=== PATIENT | female | born 1995 | race Caucasian/White ===

== ENCOUNTER 2016-11-22 15:29 | Emergency (ER) | payer OTHER ==
--- NOTE | 2016-11-22 15:54 | ER Document Report ---
ED Medical Screen (RME) - General Chief Complaint: Headache Stated Complaint: HEAD PAIN Time seen by provider: 15:50 Mode of Arrival: Ambulatory Information source: Patient Notes: 21-year-old female is complaining of typical migraine headache lasting longer than usual. It started a week and a half ago and is combined with hair loss, fatigue, malaise. no chest pain or abdominal pain. TRAVEL OUTSIDE OF THE [place] IN LAST 30 DAYS: No - Related Data Allergies/Adverse Reactions: No Known Allergies Allergy (Verified 11/22/16 15:48) Past Medical History Renal/ Medical History: Reports: Hx Ovarian Cysts Past Surgical History: Reports: Hx Myringotomy - Immunizations Immunizations up to date: Yes Hx Diphtheria, Pertussis, Tetanus Vaccination: Yes Physical Exam - Vital signs Vitals: Temp Pulse Resp BP Pulse Ox 97.5 F 79 16 103/61 100 11/22/16 15:49 11/22/16 15:49 11/22/16 15:49 11/22/16 15:49 11/22/16 15:49 Course - Vital Signs Vital signs: Temp Pulse Resp BP Pulse Ox 97.5 F 79 16 103/61 100 11/22/16 15:49 11/22/16 15:49 11/22/16 15:49 11/22/16 15:49 11/22/16 15:49
[2016-11-22 16:35] LABS: ABSOLUTE EOSINOPHILS # (AUTO) 0.1 10^3/uL (0.0-0.6); ABSOLUTE LYMPHOCYTES (AUTO) 1.7 10^3/uL (0.5-4.7); ABSOLUTE MONOCYTES (AUTO) 0.5 10^3/uL (0.1-1.4); ABSOLUTE NEUT (AUTO) 2.5 10^3/uL (1.7-8.2); BASOPHILS % (AUTO) 0.9 % (0-2); EOSINOPHILS % (AUTO) 2.4 % (0-6); HEMATOCRIT 40.4 % (36.0-47.0); HEMOGLOBIN 12.5 g/dL (12.0-15.5); HGB HCT DIFFERENCE -2.9; LYMPHOCYTES % (AUTO) 35.7 % (13-45); MEAN CORPUSCULAR HEMOGLOBIN 23.2 pg (27.0-33.4); MEAN CORPUSCULAR HGB CONC 30.9 g/dL (32.0-36.0); MEAN CORPUSCULAR VOLUME 75 fl (80-97); MONOCYTES % (AUTO) 10.3 % (3-13); RED BLOOD COUNT 5.38 10^6/uL (3.72-5.28); RED CELL DISTRIBUTION WIDTH 18.1 % (11.5-14.0); SEGMENTED NEUTROPHILS % (AUTO) 50.7 % (42-78); WHITE BLOOD COUNT 4.9 10^3/uL (4.0-10.5)
[2016-11-22 16:46] LABS: APPEARANCE,URINE SLIGHTLY-CLOUDY; BILIRUBIN,URINE NEGATIVE (NEGATIVE); GLUCOSE, URINE NEGATIVE (NEGATIVE); KETONES,URINE NEGATIVE (NEGATIVE); LEUKOCYTE ESTERASE,URINE TRACE (NEGATIVE); NITRITE,URINE NEGATIVE (NEGATIVE); PROTEIN,URINE NEGATIVE (NEGATIVE); URINE SPECIFIC GRAVITY 1.024; UROBILINOGEN,URINE NEGATIVE mg/dL (<2.0)
[2016-11-22 16:56] LABS: ALANINE AMINOTRANSFERASE 20 U/L (9-52); ALBUMIN 4.3 g/dL (3.5-5.0); ALKALINE PHOSPHATASE 89 U/L (38-126); ANION GAP 12 (5-19); ASPARTATE AMINO TRANSFERASE 17 U/L (14-36); BILIRUBIN,TOTAL 0.4 mg/dL (0.2-1.3); BLOOD UREA NITROGEN 14 mg/dL (7-20); CALCIUM 9.7 mg/dL (8.4-10.2); CARBON DIOXIDE 28 mmol/L (22-30); CHLORIDE 102 mmol/L (98-107); GLUCOSE 88 mg/dL (75-110); POTASSIUM 4.6 mmol/L (3.6-5.0); SODIUM 141.5 mmol/L (137-145); TOTAL PROTEIN 7.7 g/dL (6.3-8.2)
[2016-11-22] MEDS ORDERED: PROCHLORPERAZINE MALEATE 10 MG TABLET PO ONE (17:31)
[2016-11-22] MEDS ORDERED: ONDANSETRON 4 MG TAB.RAPDIS PO ONE (17:31)
[2016-11-22 18:12] LABS: URINE BARBITURATES SCREEN NEGATIVE; URINE METHADONE SCREEN NEGATIVE; URINE PHENCYCLIDINE SCREEN NEGATIVE
--- NOTE | 2016-11-22 19:03 | ER Document Report ---
ED General - General Chief Complaint: Headache Stated Complaint: HEAD PAIN Mode of Arrival: Ambulatory TRAVEL OUTSIDE OF THE [place] IN LAST 30 DAYS: No - HPI Patient complains to provider of: fatigue headache Notes: Patient with a history of migraine headaches. Patient states headache today similar to headaches in past states that ongoing for one half weeks. Patient is also complaining of generalized fatigue and weakness states that she's also having some hair loss. Patient is post proximal to 6 months. Patient is a . Otherwise denies any fever chills nausea vomiting diarrhea. Denies trauma. - Related Data Allergies/Adverse Reactions: No Known Allergies Allergy (Verified 11/22/16 15:48) Past Medical History - General Information source: Patient - Social History Smoking Status: Never Smoker Chew tobacco use (# tins/day): No Frequency of alcohol use: None Drug Abuse: None Family History: Reviewed & Not Pertinent Patient has suicidal ideation: No Patient has homicidal ideation: No Renal/ Medical History: Reports: Hx Ovarian Cysts. Denies: Hx Peritoneal Dialysis Psychiatric Medical History: Reports: Hx Depression Past Surgical History: Reports: Hx Myringotomy - Immunizations Immunizations up to date: Yes Hx Diphtheria, Pertussis, Tetanus Vaccination: Yes Review of Systems - Review of Systems Constitutional: Other - Generalized fatigue EENT: No symptoms reported Cardiovascular: No symptoms reported Respiratory: No symptoms reported Gastrointestinal: No symptoms reported Genitourinary: No symptoms reported Female Genitourinary: No symptoms reported Musculoskeletal: No symptoms reported Skin: No symptoms reported Hematologic/Lymphatic: No symptoms reported Neurological/Psychological: Headaches -: Yes All other systems reviewed and negative Physical Exam - Vital signs Vitals: Temp Pulse Resp BP Pulse Ox 97.5 F 79 16 103/61 100 11/22/16 15:45 11/22/16 15:45 11/22/16 15:45 11/22/16 15:45 11/22/16 15:45 Interpretation: Normal - General General appearance: Appears well, Alert - HEENT Head: Normocephalic, Atraumatic Eyes: Normal Pupils: PERRL - Respiratory Respiratory status: No respiratory distress Chest status: Nontender Breath sounds: Normal Chest palpation: Normal - Cardiovascular Rhythm: Regular Heart sounds: Normal auscultation Murmur: No - Abdominal Inspection: Normal Distension: No distension Bowel sounds: Normal Tenderness: Nontender Organomegaly: No organomegaly - Back Back: Normal, Nontender - Extremities General upper extremity: Normal inspection, Nontender, Normal color, Normal ROM , Normal temperature General lower extremity: Normal inspection, Nontender, Normal color, Normal ROM , Normal temperature, Normal weight bearing. No: Addison's sign - Neurological Neuro grossly intact: Yes Cognition: Normal Orientation: AAOx4 Kelvin Coma Scale Eye Opening: Spontaneous [place] Coma Scale Verbal: Oriented Kelvin Coma Scale Motor: Obeys Commands Kelvin Coma Scale Total: 15 Speech: Normal Motor strength normal: LUE, RUE, LLE, RLE Sensory: Normal - Psychological Associated symptoms: Normal affect, Normal mood - Skin Skin Temperature: Warm Skin Moisture: Dry Skin Color: Normal Course - Re-evaluation Re-evalutation: 11/22/16 23:04 Patient's lab work shows no critical etiology. More likely patient could be fatigue from her recent white changes. Headache resolved with Compazine. Patient encouraged follow-up her primary care physician. : The patient presents with headache without signs of FACULTY SUPPORT COORDINATOR bleed, stroke, infection, or other serious etiology. The patient is neurologically intact. Given the extremely low risk of these diagnoses further testing and evaluation for these possibilities does not appear to be indicated at this time. The patient has been instructed to return if the symptoms worsen or change in any way.. - Vital Signs Vital signs: Temp Pulse Resp BP Pulse Ox 98.0 F 81 18 110/67 100 11/22/16 20:26 11/22/16 20:26 11/22/16 20:26 11/22/16 20:26 11/22/16 20:26 - Laboratory Result Diagrams: 11/22/16 15:20 11/22/16 15:20 Laboratory results interpreted by me: 11/22/16 11/22/16 15:20 15:20 RBC 5.38 H MCV 75 L MCH 23.2 L MCHC 30.9 L RDW 18.1 H Ur Leukocyte Esterase TRACE H Discharge - Discharge Clinical Impression: Headache Qualifiers: Headache type: unspecified Headache chronicity pattern: unspecified pattern Intractability: not intractable Qualified Code(s): R51 - Headache Fatigue Qualifiers: Fatigue type: unspecified Qualified Code(s): R53.83 - Other fatigue Condition: Stable Disposition: HOME, SELF-CARE Instructions: Headache ([facility]), Fatigue ([facility]) Additional Instructions: Your labwork today including your electrolytes and thyroid studies showed no signs of abnormality. No signs of infection. He may take the Compazine and Zofran provided for your headache. Return to the ER symptoms worsen follow-up with your primary care physician. Prescriptions: Ondansetron [Zofran Odt 4 mg Tablet] 1 - 2 tab PO Q6 #15 tab.rapdis Prochlorperazine Maleate [Compazine] 5 mg PO Q6 #15 tablet Forms: Return to Work
[2016-11-22 20:32] VITALS: BP 110/67
== END 2016-11-22 20:26 | disposition home or self-care (01) ==
LOC: ER 15:29
DX: R51 Headache (principal); R53.83 Other fatigue
CPT/HCPCS: 99284; 36415; 84443; 84703; 85025; 86308; 80053; 81001; 80307; S0119; S0183

== ENCOUNTER 2018-03-03 07:22 | Outpatient (CLI) | payer OTHER ==
--- NOTE | 2018-03-03 08:16 | L&D Progress Notes ---
PROGRESS NOTES Datetime Report Generated by CPN: 03/03/2018 08:16 PROGRESS NOTE Impression: Reassuring Heart Rate Comment: Here for labor check, having uc's per pt, has a 18 month old and did not realize she should be having this many uc's. Hsb getting out of in 18 days and moving to [place]. Has appt at [facility] at 1 today. Will get reactive strip and discharge to keep appt at [facility] SIGNATURE SIGNATURE: [id number] Assignment: Camilo Russo MD Signature: with User ID: [email or web address] : with User ID: [email or web address]
[2018-03-03 08:36] LABS: AMORPHOUS SEDIMENT,URINE TRACE /HPF; APPEARANCE,URINE CLOUDY; BILIRUBIN,URINE NEGATIVE (NEGATIVE); COLOR,URINE YELLOW; GLUCOSE, URINE NEGATIVE (NEGATIVE); KETONES,URINE NEGATIVE (NEGATIVE); LEUKOCYTE ESTERASE,URINE SMALL (NEGATIVE); NITRITE,URINE NEGATIVE (NEGATIVE); PROTEIN,URINE NEGATIVE (NEGATIVE); UROBILINOGEN,URINE NEGATIVE mg/dL (<2.0)
[2018-03-03 08:49] LABS: URINE AMPHETAMINES SCREEN NEGATIVE; URINE BARBITURATES SCREEN NEGATIVE; URINE BENZODIAZEPINES SCREEN NEGATIVE; URINE COCAINE SCREEN NEGATIVE; URINE MARIJUANA (THC) SCREEN NEGATIVE; URINE METHADONE SCREEN NEGATIVE; URINE PHENCYCLIDINE SCREEN NEGATIVE
--- NOTE | 2018-03-03 08:53 | Non Stress Test Report ---
Non Stress Test Datetime Report Generated by CPN: 03/03/2018 08:52 DEMOGRAPHIC EGA NST: 35.5 INDICATION Indication for Study: Ordered by Provider Indication for Study (NST) Other: labor check MONITORING Monitor Explained: Monitor Explained; Test Explained; Patient Verbalized Understanding Monitor Explained Other: See FLowsheet vitals Time on Monitor: 03/03/2018 07:35 Time off Monitor: 03/03/2018 08:44 NST Duration: 69 NST INTERVENTIONS NST Interventions: PO Hydration Physician Notified NST: J. Frias CNM BABY A: [id number] BABY A Movement : Present Contraction Frequency : Irregular FHR Baseline : 140 Accelerations : 15X15 Decelerations : None Variability : Moderate 6-25bpm NST Review: Meets Criteria for Reactive NST NST Review and Verified By : Janina MORLEY Results: Reactive NST REPORT Report Trigger: Send Report
== END 2018-03-03 08:50 | disposition home or self-care (01) ==
LOC: LC 07:22
PROVIDERS: ATTEND Obstetrics & Gynecology
PROC: 4A1HXCZ Monitoring of Products of Conception, Cardiac Rate, External Approach (ICD-10-PCS; principal; 2018-03-03)
DX: O47.03 False labor before 37 completed weeks of gestation, third trimester (principal); Z3A.35 35 weeks gestation of pregnancy
CPT/HCPCS: 59025; 80307; 81001

== ENCOUNTER 2018-03-11 19:02 | Outpatient (CLI) | payer OTHER ==
[2018-03-11 19:55] LABS: APPEARANCE,URINE SLIGHTLY-CLOUDY; BILIRUBIN,URINE NEGATIVE (NEGATIVE); COLOR,URINE YELLOW; GLUCOSE, URINE NEGATIVE (NEGATIVE); KETONES,URINE NEGATIVE (NEGATIVE); LEUKOCYTE ESTERASE,URINE MODERATE (NEGATIVE); NITRITE,URINE NEGATIVE (NEGATIVE); PROTEIN,URINE NEGATIVE (NEGATIVE); URINE SPECIFIC GRAVITY 1.017; UROBILINOGEN,URINE NEGATIVE mg/dL (<2.0)
[2018-03-11 19:56] LABS: ABSOLUTE EOSINOPHILS # (AUTO) 0.1 10^3/uL (0.0-0.6); ABSOLUTE LYMPHOCYTES (AUTO) 0.9 10^3/uL (0.5-4.7); ABSOLUTE MONOCYTES (AUTO) 0.4 10^3/uL (0.1-1.4); ABSOLUTE NEUT (AUTO) 7.2 10^3/uL (1.7-8.2); BASOPHILS % (AUTO) 0.4 % (0-2); EOSINOPHILS % (AUTO) 0.8 % (0-6); HEMATOCRIT 34.6 % (36.0-47.0); HEMOGLOBIN 11.7 g/dL (12.0-15.5); LYMPHOCYTES % (AUTO) 10.5 % (13-45); MEAN CORPUSCULAR HEMOGLOBIN 27.7 pg (27.0-33.4); MEAN CORPUSCULAR HGB CONC 33.8 g/dL (32.0-36.0); MEAN CORPUSCULAR VOLUME 82 fl (80-97); MONOCYTES % (AUTO) 5.1 % (3-13); PLATELET COUNT 260 10^3/uL (150-450); RED BLOOD COUNT 4.22 10^6/uL (3.72-5.28); RED CELL DISTRIBUTION WIDTH 14.3 % (11.5-14.0); SEGMENTED NEUTROPHILS % (AUTO) 83.2 % (42-78); TOTAL CELLS COUNTED % (AUTO) 100 %; WHITE BLOOD COUNT 8.7 10^3/uL (4.0-10.5)
[2018-03-11 19:59] LABS: INTERNATIONAL RATION (INR) 0.91; PROTHROMBIN TIME 12.7 SEC (11.4-15.4)
[2018-03-11 20:00] LABS: PARTIAL THROMBOPLASTIN TIME 28.2 SEC (23.5-35.8)
[2018-03-11 20:24] LABS: URINE AMPHETAMINES SCREEN NEGATIVE; URINE BARBITURATES SCREEN NEGATIVE; URINE BENZODIAZEPINES SCREEN NEGATIVE; URINE COCAINE SCREEN NEGATIVE; URINE MARIJUANA (THC) SCREEN NEGATIVE; URINE METHADONE SCREEN NEGATIVE; URINE PHENCYCLIDINE SCREEN NEGATIVE
--- NOTE | 2018-03-11 20:30 | RADIOLOGY REPORT (SQ) ---
EXAM DESCRIPTION: U/S OB LIMITED COMPLETED DATE/TIME: 03/11/2018 8:12 pm REASON FOR STUDY: fall onto abdomen, 36wks, cramping COMPARISON: None. TECHNIQUE: Limited transabdominal grayscale ultrasound for evaluation of specific requested obstetri mariama parameters. LIMITATIONS: None. FINDINGS: CERVICAL LENGTH: 3.4 cm. Closed. HEDY: 8.5 cm. Cm. FHR: 143 beats per minute. PRESENTATION: Cephalic. OTHER: Gestation of 36 weeks 3 days. IMPRESSION: LIMITED OBSTETRICAL ULTRASOUND WITH MEASURED PARAMETERS DELINEATED ABOVE. Trimester of : Third trimester - 28 weeks to delivery. TECHNICAL DOCUMENTATION: JOB ID: [id number] [employer] All Rights Reserved Reading location - IP/workstation name: [email or web address]
[2018-03-11] MEDS ORDERED: ONDANSETRON HCL INJ/PF 4 MG/2 ML SDV IV ONE (20:47)
[2018-03-11] MEDS ORDERED: ONDANSETRON HCL 8 MG TABLET PO ONE (20:48)
[2018-03-11] MEDS ORDERED: ONDANSETRON 4 MG TAB.RAPDIS ONE (20:58)
[2018-03-11] MEDS ORDERED: ONDANSETRON HCL 8 MG TABLET ONE (21:01)
--- NOTE | 2018-03-11 21:10 | Non Stress Test Report ---
Non Stress Test Datetime Report Generated by CPN: 03/11/2018 21:10 DEMOGRAPHIC EGA NST: 36.6 INDICATION Indication for Study: Ordered by Provider URINE RESULTS Urine Protein, NST: Negative Urine Ketones - NST: Negative Urine Glucose - NST: Negative Urine Blood - NST: Negative MONITORING Monitor Explained: Monitor Explained; Test Explained; Patient Verbalized Understanding Time on Monitor: 03/11/2018 20:15 Time off Monitor: 03/11/2018 21:00 NST Duration: 45 NST INTERVENTIONS NST Interventions: PO Hydration Physician Notified NST: Head BABY A: [id number] BABY A Movement : Present Contraction Frequency : irritability FHR Baseline : 135 Accelerations : 15X15 Decelerations : None Variability : Moderate 6-25bpm NST Review: Meets Criteria for Reactive NST NST Review and Verified By : Amber Feldman RN NST Results: Reactive NST REPORT Report Trigger: Send Report
[2018-03-11 21:55] LABS: FETAL RBC COUNT 0
[2018-03-11 21:58] LABS: KB INTERPRETATION NEGATIVE (NEGATIVE)
== END 2018-03-11 22:00 | disposition home or self-care (01) ==
LOC: LC 19:02
PROVIDERS: ATTEND Student in an Organized Health Care Education/Training Program
PROC: 4A1HXCZ Monitoring of Products of Conception, Cardiac Rate, External Approach (ICD-10-PCS; principal; 2018-03-11)
DX: O26.893 Other specified pregnancy related conditions, third trimester (principal); R10.9 Unspecified abdominal pain; Z3A.36 36 weeks gestation of pregnancy; Z91.81 History of falling
CPT/HCPCS: 59025; 86900; 86901; 36415; 86850; 82962; 85025; 85362; 85610; 85730; 81005; 86592; 85460; 80307; 76815; S0119